=== PATIENT | female | born 2000 | race Caucasian/White ===

== ENCOUNTER 2020-06-20 22:29 | Emergency (ER) | payer SELFPAY ==
[~2020-06-20] VITALS: Ht 162.6 cm; Wt 54.5 kg
[2020-06-20 22:37] VITALS: TEMP 98
[2020-06-20 22:46] LABS: PH 5 (5-8); SQUAMOUS EPITHELIAL 0-2 /hpf; URINE APPEARANCE Turbid; URINE BACTERIA None Seen /hpf; URINE BILIRUBIN Negative (NEGATIVE); URINE BLOOD 3+ (NEGATIVE); URINE COLOR Yellow; URINE GLUCOSE Negative (NEGATIVE); URINE KETONE Negative (NEGATIVE); URINE LEUKOCYTE ESTERASE 3+ (NEGATIVE); URINE NITRATE Negative (NEGATIVE); URINE PROTEIN(semi-quant) 2+ (NEGATIVE); URINE RBC >50 /hpf; URINE UROBILINOGEN Negative (NEGATIVE); URINE WBC >50 /hpf
[2020-06-20 22:52] LABS: COLLECTION METHOD CLEAN CATCH
[2020-06-20] MEDS ORDERED: MACROBID 1100 MG/CAP PO (23:00)
[2020-06-20 23:15] VITALS: BP 132/70; PULSE 78
== END 2020-06-20 23:16 | disposition home or self-care (01) ==
LOC: COL.ER 22:29
PROVIDERS: Emergency Medicine
DX: N39.0 Urinary tract infection, site not specified (principal); F17.290 Nicotine dependence, other tobacco product, uncomplicated; Z32.02 Encounter for pregnancy test, result negative; Z88.0 Allergy status to penicillin; Z88.1 Allergy status to other antibiotic agents

== ENCOUNTER 2020-06-27 09:57 | Emergency (ER) | payer SELFPAY ==
[~2020-06-27] VITALS: Ht 162.6 cm; Wt 54.5 kg
[~2020-06-27 09:57] MED LIST: MACROBID 1100 MG/CAP PO
[2020-06-27 10:29] LABS: COLLECTION METHOD CLEAN CATCH
[2020-06-27 10:40] LABS: PH 6 (5-8); SQUAMOUS EPITHELIAL None Seen /hpf; URINE APPEARANCE Turbid; URINE BACTERIA None Seen /hpf; URINE BILIRUBIN Negative (NEGATIVE); URINE BLOOD 3+ (NEGATIVE); URINE COLOR Amber; URINE GLUCOSE Negative (NEGATIVE); URINE KETONE Negative (NEGATIVE); URINE LEUKOCYTE ESTERASE 2+ (NEGATIVE); URINE NITRATE Negative (NEGATIVE); URINE PROTEIN(semi-quant) 3+ (NEGATIVE); URINE RBC >50 /hpf; URINE UROBILINOGEN Negative (NEGATIVE)
[2020-06-27] MEDS ORDERED: CEFTIN 250250 MG/TAB PO (11:01)
[2020-06-27 11:07] VITALS: BP 101/64; PULSE 63; TEMP 98.6
== END 2020-06-27 11:08 | disposition home or self-care (01) ==
LOC: COL.ER 09:57
PROVIDERS: Nurse Practitioner
DX: N39.0 Urinary tract infection, site not specified (principal); F17.210 Nicotine dependence, cigarettes, uncomplicated; Z32.02 Encounter for pregnancy test, result negative; Z88.0 Allergy status to penicillin; Z88.1 Allergy status to other antibiotic agents

== ENCOUNTER 2020-11-05 14:31 | Emergency (ER) | payer SELFPAY ==
[~2020-11-05] VITALS: Ht 162.6 cm; Wt 54.5 kg
[~2020-11-05 14:31] MED LIST changes: +CEFTIN 250250 MG/TAB PO
[2020-11-05 15:27] VITALS: TEMP 98
[2020-11-05 15:58] LABS: COLLECTION METHOD CLEAN CATCH
[2020-11-05 16:05] LABS: MUCOUS Present /lpf; PH 6 (5-8); URINE APPEARANCE Hazy; URINE BACTERIA None Seen /hpf; URINE BILIRUBIN Negative (NEGATIVE); URINE BLOOD Negative (NEGATIVE); URINE COLOR Yellow; URINE GLUCOSE Negative (NEGATIVE); URINE KETONE Negative (NEGATIVE); URINE LEUKOCYTE ESTERASE Negative (NEGATIVE); URINE NITRATE Negative (NEGATIVE); URINE PROTEIN(semi-quant) Negative (NEGATIVE); URINE RBC 0-2 /hpf; URINE UROBILINOGEN Negative (NEGATIVE)
[2020-11-05 16:32] VITALS: BP 117/56; PULSE 67
== END 2020-11-05 16:33 | disposition home or self-care (01) ==
LOC: COL.ER 14:31
PROVIDERS: Nurse Practitioner Primary Care
DX: Z20.3 Contact with and (suspected) exposure to rabies (principal); N39.0 Urinary tract infection, site not specified; F17.200 Nicotine dependence, unspecified, uncomplicated

== ENCOUNTER 2020-11-24 19:38 | Emergency (ER) | payer SELFPAY ==
[~2020-11-24] VITALS: Ht 162.6 cm; Wt 54.5 kg
[2020-11-24 19:41] VITALS: TEMP 98.7
[2020-11-24 21:10] LABS: CALCIUM 9.6 mg/dL (8.4-10.2); CREATININE, serum 0.75 mg/dL (0.57-1.11); POTASSIUM 3.3 mmol/L (3.5-4.5)
[2020-11-24] MEDS ORDERED: CLEOCIN HCL300 MG PO (22:24)
[2020-11-24 22:45] VITALS: BP 122/70; PULSE 76
== END 2020-11-24 22:45 | disposition home or self-care (01) ==
LOC: COL.ER 19:38
PROVIDERS: Emergency Medicine
DX: K11.3 Abscess of salivary gland (principal); Z88.0 Allergy status to penicillin; Z88.1 Allergy status to other antibiotic agents
CPT/HCPCS: J0696; Q9967

== ENCOUNTER → 2020-11-25 | Outpatient (CLI) | payer SELFPAY ==
[~2020-11-25] MED LIST changes: +CLEOCIN HCL300 MG PO
== END ==
LOC: ZCOL.LAB 17:49
DX: K11.3 Abscess of salivary gland (principal)